=== PATIENT | female | born 1955 | race Caucasian/White ===

== ENCOUNTER 2021-07-03 08:42 | Observation (INO) ==
[2021-07-03] MEDS: 0.9 % Sodium Chloride 1,000 ML IVC SCH ×5 (09:29→12:54)
[2021-07-03 09:32] LABS: Basophils % 0.7 %; Eosinophils # 0.1 K/mcL (0.0-0.6); Eosinophils % 1.3 %; Hematocrit 41.2 % (35.3-44.9); Hemoglobin 13.6 g/dL (11.5-15.4); Immature Granulocytes % 0.4 % (0-4); Lymphocytes # 0.6 K/mcL (0.6-4.6); Mean Corpuscular Hemoglobin 30.8 pg (28.0-33.3); Mean Corpuscular Volume 93.4 fL (83.0-100.0); Mean Platelet Volume 9.3 fL (9.4-12.4); Monocytes % 17.6 %; Neutrophils # 3.8 K/mcL (1.6-8.9); Platelet Count 213 K/mcL (140-400); Red Blood Count 4.41 M/mcL (3.82-4.97); White Blood Count 5.4 K/mcL (4.3-11.1)
[2021-07-03 09:53] LABS: BUN/Creatinine Ratio 15 (6-26); Blood Urea Nitrogen 14 mg/dL (8-23); Calcium 9.4 mg/dL (8.6-10.3); Carbon Dioxide 27 mEq/L (23-29); Chloride 101 mEq/L (98-107); Glucose 100 mg/dL (70-105); Osmolality,Calculated 281 (280-300); Potassium 3.9 mEq/L (3.5-5.1); Sodium 135 mEq/L (136-145); Troponin I < 0.03 ng/mL (< 0.04); eGFR For African Americans > 60 (> 60); eGFR For Non-African Americans 60 (> 60)
[2021-07-03 09:53] LABS: Amorphous Sediment,Urine Few per hpf (None-Few); Bilirubin,Urine Negative (Negative); Blood,Urine Negative (Negative); Clarity,Urine Turbid (Clear); Color,Urine Light-Yellow (Yellow); Glucose,Urine (UA) Normal (Normal); Ketones,Urine Negative (Negative); Leukocyte Esterase,Urine Negative (Negative); Mucus,Urine Few per lpf (None-Few); Nitrite,Urine Negative (Negative); Protein,Urine Trace mg/dL (Neg-Trace); RBC,Urine 0-3 per hpf (0-3); Specific Gravity,Urine 1.016 (1.010-1.025); Squamous Epithelial Cell,Urine Few per hpf (None-Few); Urobilinogen,Urine Normal (Normal); WBC,Urine 0-3 per hpf (0-3)
[2021-07-03] MEDS ORDERED: Isovue-370 500 ML BOTTLE IVP ONE (10:17)
[2021-07-03 10:31] LABS: Influenza A PCR Negative (Negative); Influenza B PCR Negative (Negative); Resp. Syncytial Virus PCR Negative (Negative)
[2021-07-03 10:39] LABS: SARS-CoV-2 by PCR (In House) Negative (Negative)
[2021-07-03] MEDS ORDERED: Ibuprofen 600 MG TABLET PO ONE (11:18)
[2021-07-03] MEDS ORDERED: 0.9 % Sodium Chloride 1,000 ML IVC ONE (11:27)
[2021-07-03] MEDS ORDERED: Perflutren Lipid Microsphere 1.3 ML in 0.9 % Sodium Chloride 8.7 ML IVP PRN (13:14)
[2021-07-03] MEDS ORDERED: Naloxone 0.4 MG/ML INJ IVP PRN (13:52)
[2021-07-03] MEDS ORDERED: GI Cocktail 40 ML EACH PO ONE (14:04)
[2021-07-03] MEDS ORDERED: Acetaminophen/Butalbital/CaffeineTABLET PO PRN (15:33)
[2021-07-03] MEDS: Pantoprazole 40 MG VIAL IVP SCH (18:09)
[2021-07-03] MEDS ORDERED: Ketorolac 30 MG/ML VIAL IVP PRN (20:29)
[2021-07-04] MEDS ORDERED: Acetaminophen 325 MG TABLET PO PRN (00:45)
[2021-07-04 03:58] LABS: BUN/Creatinine Ratio 15 (6-26); Blood Urea Nitrogen 13 mg/dL (8-23); Calcium 7.9 mg/dL (8.6-10.3); Carbon Dioxide 22 mEq/L (23-29); Chloride 107 mEq/L (98-107); Glucose 94 mg/dL (70-105); Osmolality,Calculated 280 (280-300); Potassium 4.3 mEq/L (3.5-5.1); Sodium 135 mEq/L (136-145); eGFR For African Americans > 60 (> 60); eGFR For Non-African Americans > 60 (> 60)
[2021-07-04 03:59] LABS: Basophils % 0.8 %; Eosinophils % 0.2 %; Immature Granulocytes % 0.6 % (0-4); Lymphocytes # 0.9 K/mcL (0.6-4.6); Lymphocytes % 18.7 %; Mean Corpuscular HGB Conc 33.1 g/dL (31.6-35.5); Mean Corpuscular Hemoglobin 31.1 pg (28.0-33.3); Mean Platelet Volume 10.4 fL (9.4-12.4); Monocytes # 0.9 K/mcL (0.0-1.3); Monocytes % 18.7 %; Neutrophils # 3.1 K/mcL (1.6-8.9); Platelet Count 164 K/mcL (140-400); Red Blood Count 3.83 M/mcL (3.82-4.97); Red Cell Distribution Width 13.3 % (11.5-14.5)
[2021-07-04 04:02] LABS: Hemoglobin 11.9 g/dL (11.5-15.4)
[2021-07-04] MEDS: Pantoprazole 40 MG VIAL IVP SCH (05:21)
[2021-07-04 07:29] VITALS: TEMP 98.2; O2SAT 95
[2021-07-04] MEDS ORDERED: Regadenoson 0.4 MG/5 ML SYRINGE IVP ONE (07:29)
[2021-07-04] MEDS ORDERED: Morphine Sulfate 2 MG/ML SYRINGE IVP ONE (11:07)
[2021-07-04 11:47] VITALS: PULSE 83
[2021-07-04 13:36] VITALS: BP 156/80
[2021-07-05] MEDS ORDERED: Cholecalciferol (D-3) 1,000 UNIT (25MCG) TABLET PO SCH (09:00)
[2021-07-05] MEDS ORDERED: Letrozole 2.5 MG TABLET PO SCH (09:00)
== END 2021-07-04 15:40 | disposition home or self-care (01) ==
LOC: 3NENU 08:42 → EMEROOARM 08:42 → 3NENU 13:25
PROVIDERS: ADMIT Internal Medicine; ATTEND Internal Medicine